=== PATIENT | male | born 1980 ===

== ENCOUNTER 2018-01-01 18:25 | Emergency (ER) | payer OTHER ==
[2018-01-01 18:39] VITALS: BP 131/89; PULSE 78; RESP 20; TEMP 98.5; O2SAT 97
--- NOTE | 2018-01-01 19:19 | C.PDOC ---
History Of Present Illness 37 year old male presents to the ED c/o right foot pain that started today. Patient reports that while at work patient had his right foot stuck between a forklift and a wall. Patient denies weakness, numbness, fall, trauma. Time Seen by Provider: 01/01/18 19:04 Chief Complaint (Nursing): Lower Extremity Problem/Injury History Per: Patient History/Exam Limitations: no limitations Onset/Duration Of Symptoms: Hrs Current Symptoms Are (Timing): Still Present Recent travel outside of the [place]: No Additional History Per: Patient - Ankle/Foot Description Of Injury: Struck Against Object Currently Unable To: Bend Or Move Past Medical History Reviewed: Historical Data, Nursing Documentation, Vital Signs Vital Signs: Last Vital Signs Temp 98.5 F 01/01/18 18:37 Pulse 78 01/01/18 18:37 Resp 20 01/01/18 18:37 BP 131/89 01/01/18 18:37 Pulse Ox 97 01/01/18 19:20 - Medical History PMH: No Chronic Diseases Surgical History: No Surg Hx Family History: States: Unknown Family Hx - Social History Hx Alcohol Use: No Hx Substance Use: No - Immunization History Hx Tetanus Toxoid Vaccination: No Hx Influenza Vaccination: No Hx Pneumococcal Vaccination: No Review Of Systems Constitutional: Negative for: Fever, Chills Cardiovascular: Negative for: Chest Pain Respiratory: Negative for: Shortness of Breath Musculoskeletal: Positive for: Foot Pain Skin: Negative for: Rash Neurological: Negative for: Weakness, Numbness Physical Exam - Physical Exam Appears: Non-toxic, No Acute Distress Skin: Normal Color, Warm, Dry Extremity: Normal ROM, Tenderness (dorsal aspect right foot), Capillary Refill ( < 2 seconds), No Swelling Extremity: Bilateral: Normal Color And Temperature Pulses: Left Dorsalis Pedis: Normal, Right Dorsalis Pedis: Normal Neurological/Psych: Oriented x3, Normal Motor, Normal Sensation Gait: Steady ED Course And Treatment O2 Sat by Pulse Oximetry: 97 (ON RA) Pulse Ox Interpretation: Normal Medical Decision Making Medical Decision Making: Plan: * Toradol 30 mg IM * Right foot X-Ray 2211 pt with neg foot xray, declines orthopedic shoe, decrease pain after toradol. d/c home. f/u podiatry. Disposition Counseled Patient/Family Regarding: Studies Performed, Diagnosis, Need For Followup, Rx Given - Disposition Referrals: Podiatry Clinic [Outside] Disposition: HOME/ ROUTINE Disposition Time: 20:13 Condition: GOOD Additional Instructions: Phillips ibuprofeno para el dolor. Seguimiento en la clnica de podologa. Take ibuprofen for pain. Follow up in podiatry clinic. 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 - Scribe Statement The provider has reviewed the documentation as recorded by the Scribe Tj Contreras All medical record entries made by the Scribe were at my direction and personally dictated by me. I have reviewed the chart and agree that the record accurately reflects my personal performance of the history, physical exam, medical decision making, and the department course for this patient. I have also personally directed, reviewed, and agree with the discharge instructions and disposition.
--- NOTE | 2018-01-02 12:01 | RAD ---
PROCEDURE: Right Foot Radiographs. HISTORY: Anterior ankle pain s/p foot crushed between wall COMPARISON: None. FINDINGS: BONES: Normal. No evidence of acute displaced fracture nor dislocation fracture. JOINTS: Normal. SOFT TISSUES: Normal. OTHER FINDINGS: None. IMPRESSION: Normal right foot radiographNo evidence of acute displaced fracture nor dislocation. If symptoms persist or occult fracture suspected clinically recommend repeat radiographs in 5-10 days as most fractures should become radiographically evident in this timeframe.
== END 2018-01-01 20:25 | disposition home or self-care (01) ==
LOC: C.ER 18:25
DX: S99.921A Unspecified injury of right foot, initial encounter (principal); W23.0XXA Caught, crushed, jammed, or pinched between moving objects, initial encounter; Y99.0 Civilian activity done for income or pay
CPT/HCPCS: 73630; 96372; 99283; J1885